=== PATIENT | female | born 1985 | race African-American/Black ===

== ENCOUNTER 2017-09-03 08:33 | Emergency (ER) | payer SELFPAY ==
[2017-09-03 08:39] VITALS: BP 149/96
--- NOTE | 2017-09-03 09:26 | ER Document Report ---
HPI - HPI Patient complains to provider of: Bilateral forearm pain numbness and tingling Onset: Other - 2 weeks Onset/Duration: Persistent, Worse Quality of pain: Achy, Throbbing Severity: Severe Pain Level: 4 Context: Patient presents emergency department with complaints of bilateral hand fingertip numbness and pain with forearm with pain to both forearms. Pain is worse at night. Patient reports she has had this before but it has increased recently. Patient reports she just started a new job with [employer] within the past 2 weeks. This job requires her to lift boxes frequently. She reports she has been treated for this in the past with a brace, has tried using it but it hurts her at night so she takes it off.. Patient does not have insurance cannot follow-up with a primary care or orthopedic. At this time. Patient has also been taking Aleve without relief of pain. Denies trauma. She denies fever nausea vomiting diarrhea. She denies urinary frequency or increased thirst. Associated Symptoms: None Exacerbated by: Movement Relieved by: Denies Similar symptoms previously: Yes Recently seen / treated by doctor: No - CONSTITUTIONAL Constitutional: DENIES: Fever, Chills - EENT EENT: DENIES: Sore Throat, Ear Pain, Eye problems - NEURO Neurology: DENIES: Headache, Weakness, Vision blurred, Dizzinesss / Vertigo - CARDIOVASCULAR Cardiovascular: DENIES: Chest pain - RESPIRATORY Respiratory: DENIES: Trouble Breathing, Coughing - GASTROINTESTINAL Gastrointestinal: DENIES: Abdominal Pain, Black / Bloody Stools - URINARY Urinary: DENIES: Dysuria, Urgency, Frequency - REPRODUCTIVE Reproductive: REPORTS: : - MUSCULOSKELETAL Musculoskeletal: REPORTS: Extremity pain - bilateral hand parasthesia Past Medical History - General Information source: Patient - Social History Smoking Status: Never Smoker Cigarette use (# per day): No Chew tobacco use (# tins/day): No Frequency of alcohol use: Occasional Drug Abuse: None Occupation: [employer] Family History: DM - grandmother, Hypertension Patient has suicidal ideation: No Patient has homicidal ideation: No - Past Medical History Cardiac Medical History: Denies: Hx Coronary Artery Disease, Hx Heart Attack Neurological Medical History: Denies: Hx Cerebrovascular Accident, Hx Seizures Endocrine Medical History: Denies: Hx Diabetes Mellitus Type 1, Hx Diabetes Mellitus Type 2, Hx Hyperthyroidism, Hx Hypothyroidism Renal/ Medical History: Denies: Hx Kidney Stones, Hx Ovarian Cysts, Hx Peritoneal Dialysis, Hx Pelvic Inflammatory Disease Malignancy Medical History: Denies: Hx Breast Cancer, Hx Cervical Cancer, Hx Ovarian Cancer GI Medical History: Reports: Hx Gastroesophageal Reflux Disease. Denies: Hx Hiatal Hernia, Hx Ulcer Musculoskeletal Medical History: Reports Hx Arthritis Past Surgical History: Reports: Hx Cholecystectomy - Immunizations Hx Diphtheria, Pertussis, Tetanus Vaccination: Yes Vertical Provider Document - CONSTITUTIONAL Agree With Documented VS: Yes Exam Limitations: No Limitations General Appearance: WD/WN, No Apparent Distress - INFECTION CONTROL TRAVEL OUTSIDE OF THE [place] IN LAST 30 DAYS: No - HEENT HEENT: Atraumatic, Normocephalic - NECK Neck: Normal Inspection, Supple. 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 Patient was on taking the correct dosages of anti-inflammatories such as ibuprofen or aleve. Patient was also provided with written information regarding carpal tunnel syndrome with treatment. She verbalized understanding tall instructions. - Vital Signs Vital signs: Temp Pulse Resp BP Pulse Ox 98.5 F 81 16 149/96 H 97 09/03/17 08:37 09/03/17 08:37 09/03/17 08:37 09/03/17 08:37 09/03/17 08:37 Procedures - Immobilization Right Wrist Pre-Proc Neuro Vasc Exam: Normal Immobilizer type: Cock-up Performed by: TUAN [email or web address] Post-Proc Neuro Vasc Exam: Unchanged from pre-exam Alignment checked and good: Yes Notes: 09/03/17 09:43 bilateral wrist splints placed Discharge - Discharge Clinical Impression: Pain in both forearms, Bilateral carpal tunnel syndrome, Elevated blood pressure Condition: Stable Disposition: HOME, SELF-CARE Instructions: Carpal Tunnel Syndrome ([facility]), Use of [id number] Ibuprofen ( [facility]), Surgeon, Temporary Splint ([facility]) Additional Instructions: *You have been evaluated for bilateral forearm pain, suspect carpal tunnel syndrome *Maintain the splints as discussed *Rest/Ice/Elevate *Follow up with a primary care provider or surgeon for evaluation *Take ibuprofen as indicated *Return to ED for worsening condition, changes, needs Monitor your blood pressure. Your blood pressure was elevated today. This may be because you were anxious, in pain or because you need medication. It is important to follow up with your primary care provider for full evaluation. Forms: Elevated Blood Pressure
== END 2017-09-03 09:38 | disposition home or self-care (01) ==
LOC: ER 08:33
DX: O99.350 Diseases of the nervous system complicating pregnancy, unspecified trimester (principal); G56.03 Carpal tunnel syndrome, bilateral upper limbs; O99.89 Other specified diseases and conditions complicating pregnancy, childbirth and the puerperium; M79.631 Pain in right forearm; M79.632 Pain in left forearm; O26.899 Other specified pregnancy related conditions, unspecified trimester; R03.0 Elevated blood-pressure reading, without diagnosis of hypertension; R20.0 Anesthesia of skin; R20.2 Paresthesia of skin; Z3A.00 Weeks of gestation of pregnancy not specified
CPT/HCPCS: 99283; L3908 ×2

== ENCOUNTER 2018-04-25 08:57 | Emergency (ER) | payer MEDICAID ==
--- NOTE | 2018-04-25 09:23 | ER Document Report ---
ED Hand/Wrist Injury - General Chief Complaint: Wrist Pain Stated Complaint: WRIST PAIN Time Seen by Provider: 04/25/18 09:12 Primary Care Provider: [facility] [Provider Group] - Follow up as needed MAGALI URIAS MD [Primary Care Provider] - Follow up as needed Mode of Arrival: Ambulatory Information source: Patient Notes: 32-year-old female presents to ED for complaint of right wrist pain. She states she was driving her son to school while trying to put her seatbelt on when she felt a bone popped out of place. She states she has not been able to put it back in place and it is hurt since then. 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 She states she is not taking any medication for the pain this morning. She states she has a history of high blood pressure diabetes gallbladder and x3. She is alert oriented respirations regular and unlabored speaking in full sentence and walks with a even steady gait. She does have range of motion to the wrist little limited on distention due to discomfort. TRAVEL OUTSIDE OF THE [place] IN LAST 30 DAYS: No - HPI Injury to: Wrist Onset: Yesterday Where: Outdoors, Public place Timing: Still present Quality of pain: Achy Severity: Moderate Pain Level: 3 Context: Other - Putting on seatbelt when bone popped - Related Data Allergies/Adverse Reactions: No Known Allergies Allergy (Verified 04/25/18 09:02) Past Medical History - General Information source: Patient - Social History Smoking Status: Former Smoker Cigarette use (# per day): No Chew tobacco use (# tins/day): No Smoking Education Provided: No Frequency of alcohol use: Social Occupation: [employer] Lives with: Alone - children Family History: DM - grandmother, Hypertension Patient has suicidal ideation: No - Past Medical History Cardiac Medical History: Reports: Hx Hypertension Pulmonary Medical History: Reports: None EENT Medical History: Reports: None Neurological Medical History: Reports: None Endocrine Medical History: Reports: Hx Diabetes Mellitus Type 2 Renal/ Medical History: Reports: None Malignancy Medical History: Reports: None GI Medical History: Reports: Hx Gastroesophageal Reflux Disease Musculoskeletal Medical History: Reports Hx Arthritis Skin Medical History: Reports None Psychiatric Medical History: Reports: None Traumatic Medical History: Reports: None Infectious Medical History: Reports: None Past Surgical History: Reports: Hx Section, Hx Cholecystectomy - Immunizations Hx Diphtheria, Pertussis, Tetanus Vaccination: Yes Review of Systems - Review of Systems Constitutional: No symptoms reported EENT: No symptoms reported Cardiovascular: No symptoms reported Respiratory: No symptoms reported Gastrointestinal: No symptoms reported Genitourinary: No symptoms reported Female Genitourinary: No symptoms reported Musculoskeletal: Other - Right wrist pain Skin: No symptoms reported Hematologic/Lymphatic: No symptoms reported Neurological/Psychological: No symptoms reported Physical Exam - Vital signs Vitals: Temp Pulse Resp BP Pulse Ox 98.3 F 94 17 155/95 H 98 04/25/18 09:04 04/25/18 09:04 04/25/18 09:04 04/25/18 09:04 04/25/18 09:04 Interpretation: Normal - General General appearance: Appears well, Alert - HEENT Head: Normocephalic, Atraumatic Eyes: Normal Pupils: PERRL - Respiratory Respiratory status: No respiratory distress Chest status: Nontender Breath sounds: Normal Chest palpation: Normal - Cardiovascular Rhythm: Regular Heart sounds: Normal auscultation Murmur: No - Abdominal Inspection: Normal Distension: No distension Bowel sounds: Normal Tenderness: Nontender Organomegaly: No organomegaly - Back Back: Normal, Nontender - Extremities General upper extremity: Normal color, Normal ROM, Normal temperature General lower extremity: Normal inspection, Nontender, Normal color, Normal ROM, Normal temperature, Normal weight bearing. No: Eliecer's sign Hand: Tender, No evidence of human bite, No evidence of FB, Swelling - Very minimal. No: Abrasion, Deformity, Dislocation, Ecchymosis, Instability, Laceration, Nail injury, Tendon deficit - Neurological Neuro grossly intact: Yes Cognition: Normal Orientation: AAOx4 Julia Coma Scale Eye Opening: Spontaneous [place] Coma Scale Verbal: Oriented [place] Coma Scale Motor: Obeys Commands Julia Coma Scale Total: 15 Speech: Normal Motor strength normal: LUE, RUE, LLE, RLE Sensory: Normal - Psychological Associated symptoms: Normal affect, Normal mood - Skin Skin Temperature: Warm Skin Moisture: Dry Skin Color: Normal Course - Re-evaluation Re-evalutation: 04/25/18 10:51 Discussed x-ray results with patient and written report of x-rays given to patient. Patient was treated with ibuprofen and cock-up splint and discharged home. - Vital Signs Vital signs: Temp Pulse Resp BP Pulse Ox 98.3 F 94 17 155/95 H 98 04/25/18 09:04 04/25/18 09:04 04/25/18 09:04 04/25/18 09:04 04/25/18 09:04 - Diagnostic Test Radiology reviewed: Image reviewed, Reports reviewed Procedures - Immobilization Right Wrist Time completed: 10:40 Immobilizer type: Cock-up Performed by: PCT Post-Proc Neuro Vasc Exam: Normal Alignment checked and good: Yes Discharge - Discharge Clinical Impression: Right wrist injury Qualifiers: Encounter type: initial encounter Qualified Code(s): S69.91XA - Unspecified injury of right wrist, hand and finger(s), initial encounter Condition: Stable Disposition: HOME, SELF-CARE Additional Instructions: SPRAIN: Your injury is a sprain. A sprain results from stretching or tearing of the ligaments, usually from a twisting injury. The ligaments will require time and protection in order to heal properly. Many sprains are quite disabling and should be taken seriously. The usual initial treatment of sprains is cold packs, elevation, and rest of the injured area. Your physician has assessed the seriousness of your ligament injury, and has outlined a treatment plan. Understand that this treatment may change, depending on how you progress. If a re-examination was recommended, it is important that you follow up as instructed. Call the doctor any time if there is severe pain, numbness, or loss of function in the injured area. SPLINT PRECAUTIONS: A splint has been placed. This will protect the area while healing begins. Your problem does NOT normally require a cast. It MUST, however, be held still! Keep the splint on ALL THE TIME until instructed to remove it by the doctor. As you begin to use the area, be careful. You shouldn't do anything which causes discomfort -- you may disturb the injury even with the splint in place. After the initial period of rest and elevation, if splint does not prevent pain when you move, come back. You may require placement of a different splint, or a cast. If there is unexpected severe pain, or numbness, discoloration, or swelling beyond the splint, you should return at once. If you feel that the splint has broken or become loose, come back. ICE & ELEVATION: Apply ice packs frequently against the painful area. Many different schedules are recommended, such as "20 minutes on, 20 minutes off" or "one hour ice, two hours rest." If you need to work, you may need to go longer between ice treatments. You should plan to have the area ice packed AT LEAST one-fourth of the time. The ice should be applied over the wrap, tape, or splint, or over a layer of cloth -- not directly against the skin. Some ice bags have a built-in cloth and can be put directly on the skin. Your injured part should be elevated as much as possible over the next 48 hours. Try to keep the injury above the level of the heart. Avoid use of the injured area. Elevation and rest will decrease the swelling. USE OF [id number] IBUPROFEN: Ibuprofen (Advil, Nuprin, Medipren, Motrin IB) is a medication for fever and pain control. In addition, it has anti- inflammatory effects which may be beneficial, especially in the treatment of injuries. It's best to take ibuprofen with food. Persons with ulcer disease or allergy to aspirin should notify their physician of this before taking ibuprofen. Ibuprofen can be given every four to six hours, for a total of four doses daily. Age Pain or fever dose Antiinflammatory dose 6-8 yr 200 mg (1 tab) 200 mg (1 tab) 9-11 yr 200 mg (1 tab) 200-400 mg (1-2 tab) 11-14 yr 200-400 mg (1-2 tab) 400 mg (2 tab) 15-adult 400 mg (2 tab) 600 mg (3 tab) FOLLOW-UP CARE: If you have been referred to a physician for follow-up care, call the physicians office for an appointment as you were instructed or within the next two days. If you experience worsening or a significant change in your symptoms, notify the physician immediately or return to the Emergency Department at any time for re-evaluation. Forms: Elevated Blood Pressure, Return to Work Referrals: MAGALI URIAS MD [Primary Care Provider] - Follow up as needed [facility] [Provider Group] - Follow up as needed
--- NOTE | 2018-04-25 10:25 | RADIOLOGY REPORT (SQ) ---
EXAM DESCRIPTION: WRIST RIGHT 3 VIEWS COMPLETED DATE/TIME: 04/25/2018 10:07 am REASON FOR STUDY: "popped out pain" COMPARISON: None. NUMBER OF VIEWS: Three views. TECHNIQUE: AP, lateral, and oblique radiographic images acquired of the right wrist. LIMITATIONS: None. FINDINGS: MINERALIZATION: Normal. BONES: No acute fracture or dislocation. No worrisome bone lesions. Normal alignment. SOFT TISSUES: No soft tissue swelling. No foreign body. OTHER: No other significant finding. IMPRESSION: 1. NEGATIVE STUDY OF THE RIGHT WRIST. TECHNICAL DOCUMENTATION: JOB ID: [id number] [employer]- All Rights Reserved Reading location - IP/workstation name: [email or web address]
[2018-04-25 10:54] VITALS: BP 144/87
== END 2018-04-25 10:48 | disposition home or self-care (01) ==
LOC: ER 08:57
DX: S69.91XA Unspecified injury of right wrist, hand and finger(s), initial encounter (principal); M25.531 Pain in right wrist; X58.XXXA Exposure to other specified factors, initial encounter; M79.89 Other specified soft tissue disorders; I10 Essential (primary) hypertension; E11.9 Type 2 diabetes mellitus without complications; Z87.891 Personal history of nicotine dependence
CPT/HCPCS: 99283; 73110; L3908

== ENCOUNTER 2018-05-19 23:27 | Emergency (ER) | payer MEDICAID ==
--- NOTE | 2018-05-20 01:22 | RADIOLOGY REPORT (SQ) ---
EXAM DESCRIPTION: XR ANKLE 3 OR MORE VIEWS COMPLETED DATE/TME: 05/20/2018 00:49 CLINICAL HISTORY: 32 years, Female, pain COMPARISON: None. NUMBER OF VIEWS: 3 TECHNIQUE: 3 views of the right ankle LIMITATIONS: None. FINDINGS: No acute fracture or dislocation. Mild soft tissue swelling surrounding the ankle. The ankle mortise is intact. No radiopaque foreign body. IMPRESSION: No acute fracture or dislocation copyright 2010 [employer]- All Rights Reserved
--- NOTE | 2018-05-20 01:33 | RADIOLOGY REPORT (SQ) ---
EXAM DESCRIPTION: Right foot [employer]: XR FOOT 3 OR MORE VIEWS Views: 3 CLINICAL HISTORY: 32 years Female, pain COMPARISON: None. FINDINGS: Overall alignment of the foot is anatomic. A small calcific density projects medial to the talonavicular joint . This is likely a chronic soft tissue calcification, but avulsion injury cannot be excluded. Please correlate with location of clinical symptoms. No other potential fractures are identified. No lytic bone changes or acute periosteal reaction. IMPRESSION: 1. No definite fractures. 2. Calcific density in the soft tissues medial to the talonavicular joint could be an age-indeterminate avulsion injury. Please correlate with location of clinical symptoms.
--- NOTE | 2018-05-20 01:54 | ER Document Report ---
Addendum entered and electronically signed by ARIS HALEY PA-C 05/20/18 02:02: Discharge - Discharge Clinical Impression: Talonavicular avulsion fracture Moderate right ankle sprain Qualifiers: Encounter type: initial encounter Qualified Code(s): S93.401A - Sprain of unspecified ligament of right ankle, initial encounter Condition: Good Disposition: HOME, SELF-CARE Instructions: Avulsion Fracture of the Ankle ([facility]), Ice Packs ([facility]), Oral Narcotic Medication ([facility]), Splint Precautions ([facility]), Sprained Ankle ([facility]) Additional Instructions: Home and use the splint for the next 3-4 days. Nonweightbearing as much as possible. Ice to the area 3 times a day. 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 You may contact his office to see if he can accommodate you. I believe this is more of a walking boot kind of a repair than it is surgical. The retirement benefits specialist ability to you better however. Should you have any concerns or problems over the weekend return to ER for recheck. Prescriptions: Hydrocodone/Acetaminophen [Isabel 5-325 Tablet] 1 each PO Q4 PRN #15 tablet PRN Reason: Referrals: MAGALI URIAS MD [Primary Care Provider] - Follow up as needed MELISSA CHAU MD [ACTIVE STAFF] - Follow up as needed Original Note: ED Extremity Problem, Lower - General Chief Complaint: Foot Injury Stated Complaint: FOOT PAIN Time Seen by Provider: 05/20/18 00:49 Primary Care Provider: MAGALI URIAS MD [Primary Care Provider] - Follow up as needed MELISSA CHAU MD [ACTIVE STAFF] - Follow up as needed Information source: Patient Notes: Patient is a 32-year-old female comes emergency room complaint right foot/ankle pain.'s been going on for roughly 2 days and she is here to have this evaluated. Patient denies any history of trauma that she knows of but she is having increasing difficulty is standing on her foot. 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 Again patient denies any known trauma. TRAVEL OUTSIDE OF THE [place] IN LAST 30 DAYS: No - HPI Patient complains to provider of: Pain Location: Ankle, Foot - Also on the morning of her daughter Occurred: Other - Like 2 days Where: Other - Unknown Onset/Duration: Gradual, Constant, Persistent, Worse Quality of pain: Sharp, Throbbing Severity: Moderate Pain Level: 3 Context: Wearing shoes Exacerbated by: Movement, Walking Relieved by: Nothing - Related Data Allergies/Adverse Reactions: No Known Allergies Allergy (Verified 04/25/18 09:02) Past Medical History - General Information source: Patient - Social History Smoking Status: Never Smoker Cigarette use (# per day): No Chew tobacco use (# tins/day): No Smoking Education Provided: No Frequency of alcohol use: None Drug Abuse: None Lives with: Family Family History: Reviewed & Not Pertinent, DM - grandmother, Hypertension - Past Medical History Cardiac Medical History: Reports: Hx Hypertension Denies: Hx Coronary Artery Disease, Hx Heart Attack Neurological Medical History: Denies: Hx Cerebrovascular Accident, Hx Seizures Endocrine Medical History: Denies: Hx Diabetes Mellitus Type 1, Hx Diabetes Mellitus Type 2, Hx Hyperthyroidism, Hx Hypothyroidism Renal/ Medical History: Denies: Hx Kidney Stones, Hx Ovarian Cysts, Hx Peritoneal Dialysis, Hx Pelvic Inflammatory Disease Malignancy Medical History: Denies: Hx Breast Cancer, Hx Cervical Cancer, Hx Ovarian Cancer GI Medical History: Reports: Hx Gastroesophageal Reflux Disease. Denies: Hx Hiatal Hernia, Hx Ulcer Musculoskeletal Medical History: Reports Hx Arthritis Past Surgical History: Reports: Hx Section, Hx Cholecystectomy - Immunizations Hx Diphtheria, Pertussis, Tetanus Vaccination: Yes Review of Systems - Review of Systems Constitutional: No symptoms reported EENT: No symptoms reported Cardiovascular: No symptoms reported Respiratory: No symptoms reported Gastrointestinal: No symptoms reported Genitourinary: No symptoms reported Female Genitourinary: No symptoms reported Musculoskeletal: See HPI, Joint pain, Joint swelling, Ankle swelling Skin: No symptoms reported Hematologic/Lymphatic: No symptoms reported Neurological/Psychological: No symptoms reported -: Yes All other systems reviewed and negative Physical Exam - Vital signs Vitals: Temp Pulse Resp BP Pulse Ox 98.1 F 104 H 20 154/115 H 96 05/19/18 23:41 05/19/18 23:41 05/19/18 23:41 05/19/18 23:41 05/19/18 23:41 Interpretation: Hypertensive, Tachycardic - Notes Notes: PHYSICAL EXAMINATION: GENERAL: Well-appearing, well-nourished and in no acute distress. Uncomfortable appearing. HEAD: Atraumatic, normocephalic. NECK: Normal range of motion, supple without lymphadenopathy LUNGS: Breath sounds clear to auscultation bilaterally and equal. No wheezes rales or rhonchi. HEART: Regular rate and rhythm without murmurs Female : deferred Musculoskeletal: examination of patient's right ankle shows there to be mild swelling circumferentially at the ankle foot space. Primarily at the talonavicular junction. Patient has increased amount of pain which is substantial on flexion as well as extension of the foot. She has good pulses on the dorsalis pedis and posterior tibial pulses. She has good flexion-extension of the toes. There is no discoloration noted at any portion of the ankle at this time. NEUROLOGICAL: Normal speech, normal gait. Normal sensory, motor exams PSYCH: Normal mood, normal affect. SKIN: Warm, Dry, normal turgor, no rashes or lesions noted. Course - Re-evaluation Re-evalutation: 05/20/18 01:54 Patient's x-ray came back on her foot that stated that there is a questionable area at the talonavicular junction. And that is exactly where patient is hurting. At this time the questionable areas are called is an avulsion fracture of the space. At this time will place patient in a 90 degree posterior more or less for comfort and she can follow-up with orthopedist outpatient. Patient has had a gastric banding and she is on no allowed to take any anti-inflammatory type medications or nonsteroidals etc. so I will write her for a small amount of hydrocodone for sleep because she is obviously in pain on my physical exam she was crying because of tears. - Vital Signs Vital signs: Temp Pulse Resp BP Pulse Ox 98.1 F 104 H 20 154/115 H 96 05/19/18 23:41 05/19/18 23:41 05/19/18 23:41 05/19/18 23:41 05/19/18 23:41 Procedures - Immobilization Right Anterior Ankle Time completed: 01:56 Pre-Proc Neuro Vasc Exam: Normal Immobilizer type: Short Leg Posterior Performed by: PCT Post-Proc Neuro Vasc Exam: Normal Alignment checked and good: Yes Discharge - Discharge Clinical Impression: Talonavicular avulsion fracture Moderate right ankle sprain Qualifiers: Encounter type: initial encounter Qualified Code(s): S93.401A - Sprain of unspecified ligament of right ankle, initial encounter Condition: Good Disposition: HOME, SELF-CARE Instructions: Avulsion Fracture of the Ankle ([facility]), Ice Packs ([facility]), Oral Narcotic Medication ([facility]), Splint Precautions ([facility]), Sprained Ankle ([facility]) Additional Instructions: Home and use the splint for the next 3-4 days. Nonweightbearing as much as possible. Ice to the area 3 times a day. 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 You may contact his office to see if he can accommodate you. I believe this is more of a walking boot kind of a repair than it is surgical. The retirement benefits specialist ability to you better however. Should you have any concerns or problems over the weekend return to ER for recheck. Prescriptions: Hydrocodone/Acetaminophen [Isabel 5-325 Tablet] 1 each PO Q4 PRN #15 tablet PRN Reason: Referrals: MAGALI URIAS MD [Primary Care Provider] - Follow up as needed MELISSA CHAU MD [ACTIVE STAFF] - Follow up as needed
[2018-05-20 02:35] VITALS: BP 148/96
== END 2018-05-20 02:51 | disposition home or self-care (01) ==
LOC: ER 23:27
DX: S93.401A Sprain of unspecified ligament of right ankle, initial encounter (principal); S92.191A Other fracture of right talus, initial encounter for closed fracture; X58.XXXA Exposure to other specified factors, initial encounter; I10 Essential (primary) hypertension; Z90.49 Acquired absence of other specified parts of digestive tract
CPT/HCPCS: 99283